=== PATIENT | male | born 1960 | race Caucasian/White ===

== ENCOUNTER 2022-04-24 15:17 | Emergency (ER) | payer BC ==
--- NOTE | 2022-04-24 16:08 | ED ---
General Adult HPI - General Chief complaint: Shortness of Breath Stated complaint: JACOB Time Seen by Provider: 04/24/22 15:33 Source: patient Mode of arrival: ambulatory - History of Present Illness Initial comments: Dictation was produced using iJento dictation software. please excuse any grammatical, word or spelling errors. Chief Complaint: 62-year-old male presents to emergency room for shortness of breath History of Present Illness: 62-year-old male with past medical history of chronic hip pain hypertension presents to the emergency department for shortness of breath and congestion. Patient states that he saw his primary care doctor 2 days ago and was prescribed medications. Patient presents to the ER because symptoms not improving. at the bedside states that patient appears jaundiced for the last month. Primary care doctor did not feel that patient appeared jaundiced. Patient denies any abdominal pain. Denies any fever, chills or night sweats. Did have some bouts of diarrhea. Patient states that he feels fatigued and weak. The ROS documented in this emergency department record has been reviewed and confirmed by me. Those systems with pertinent positive or negative responses have been documented in the HPI. All other systems are other negative and/or noncontributory. PHYSICAL EXAM: General Impression: Alert and oriented x3, not in acute distress, jaundiced, mild bilateral upper extremity asterixis HEENT: Normocephalic atraumatic, extra-ocular movements intact, pupils equal and reactive to light bilaterally, mucous membranes moist. Cardiovascular: Heart regular rate and rhythm Chest: Able to complete full sentences, no retractions, no tachypnea, decreased lung sounds to the right lung bryant Abdomen: abdomen soft, non-tender, non-distended, no organomegaly Musculoskeletal: Pulses present and equal in all extremities, no peripheral edema Motor: no focal deficits noted Neurological: CN II-XII grossly intact, no focal motor or sensory deficits noted Skin: Diffuse jaundice and scleral icterus Psych: Normal affect and mood ED course: 62-year-old male presents to the emergency department for chief complaint of shortness of breath. Signs upon arrival are within acceptable limits. Physical examination shows jaundice. Patient has painless jaundice suspicious for liver disease. Nursing notes and chart review was performed EKG interpreted by me: Ventricular rate 91, sinus rhythm,. 159, QRS 106, QTC 433. No LA prolongation, no QTC prolongation, no ST or T-wave changes noted. Overall, this EKG is unremarkable Laboratory evaluation obtained. Leukocytosis 13.1 with neutrophils at 36.1. Benoit patient's suffering from an infection. He is covered with antibiotics and blood cultures sent for culture and sensitivities. Coag panel shows INR 1.2 suggesting some sort of liver dysfunction. Metabolic panel shows some 117. Potassium 3.1. Non-gap acidosis. Slight elevation in renal markers with a G4 of 54. Total bilirubin 7.6 with a conjugated level IV.8. Liver enzymes are w ithin acceptable limits. 4 panel viral PCR is negative. Computed tomography scan of chest and pelvis was obtained showing large right-sided pleural effusion suspicious for chronic empyema versus mesothelioma. There is no obvious biliary dilatation or liver lesion or gallbladder disease. Case was discussed in detail Dr. Sneed the hospitalist who felt that patient would be better served at [facility] with GI specialist. Patient observed in emergency department for 2 hours and 40 minutes. Reevaluated at 6:06 PM found to be in stable medical condition. Patient transferred to [facility]. Case discussed with Dr. Desai was went except patient's care for ER to ER transfer. Was pt. sent in by a medical professional or institution (, PA, MANAGER PRODUCTION, urgent care, hospital, or care home...) When possible be specific @ -No Did you speak to anyone other than the patient for history (EMS, parent, family, police, friend...)? What history was obtained from this source @ - at the bedside Did you review nursing and triage notes (agree or disagree)? Why? @ -I reviewed and agree with nursing and triage notes Were old charts reviewed (outside hosp., previous admission, EMS record, old EKG, old radiological studies, urgent care reports/EKG's, care home records)? Report findings @ -No old charts were reviewed Differential Diagnosis (chest pain, altered mental status, abdominal pain women, abdominal pain men, vaginal bleeding, weakness, fever, dyspnea, syncope, headache, dizziness, GI bleed, back pain, seizure, CVA, palpatations, mental health)? @ -Differential Dyspnea: Coronary syndrome, arrhythmia, tamponade, asthma, COPD, pulmonary embolism, pneumonia, pneumothorax, pulmonary effusion, anaphylaxis, diabetic ketoacidosis, flailed chest, pulmonary contusion, diaphragmatic rupture, anemia, neuromuscular, this is not meant to be an all-inclusive list. EKG interpreted by me (3pts min.). @ -As above X-rays interpreted by me (1pt min.). @ -See above CT interpreted by me (1pt min.). @ -See above U/S interpreted by me (1pt. min.). @ -None done What testing was considered but not performed or refused? (CT, X-rays, U/S, labs)? Why? @ -None What meds were considered but not given or refused? Why? @ -none Did you discuss the management of the patient with other professionals (professionals i.e. DrEric, PA, MANAGER PRODUCTION, lab, RT, psych nurse, secondary social studies teacher, early childhood, teacher, inshore undersea warfare officer, case management assistant)? Give summary @ -See above Was smoking cessation discussed for >3mins.? @ -No Was critical care preformed (if so, how long)? @ -yes, 33 minutes Were there social determinants of health that impacted care today? How? (Homeles sness, low income, unemployed, alcoholism, drug addiction, transportation, low edu. Level, literacy, decrease access to med. care, nursing home, rehab)? @ -No Was there de-escalation of care discussed even if they declined (Discuss DNR or withdrawal of care, Hospice)? DNR status @ -No What co-morbidities impacted this encounter? (DM, HTN, Smoking, COPD, CAD, Cancer, CVA, ARF, Chemo, Hep., AIDS, mental health diagnosis, sleep apnea, morbid obesity)? @ -None Was patient admitted / discharged? Hospital course, mention meds given and route, prescriptions, significant lab abnormalities, going to OR and other pertinent info. @ -See above Undiagnosed new problem with uncertain prognosis? @ -New-onset jaundice, possible lung mass Drug Therapy requiring intensive monitoring for toxicity (Heparin, Nitro, Insulin, Cardizem)? @ -No Were any procedures done? @ -No Diagnosis/symptom? @ -1. Pleural effusion, 2. New-onset jaundice Acute, or Chronic, or Acute on Chronic? @ -Acute Uncomplicated (without systemic symptoms) or Complicated (systemic symptoms)? @ -Complicated Side effects of treatment? @ -No Exacerbation, Progression, or Severe Exacerbation? @ -No Poses a threat to life or bodily function? How? (Chest pain, [place], [place], pneumonia, PE, COPD, DKA, ARF, appy, cholecystitis, CVA, Diverticulitis, Homicidal, Suicidal, threat to staff... and all critical care pts) @ - yes - Related Data Home Medications Medication Instructions Recorded Confirmed Acetaminophen Tab [Tylenol Tab] 1,000 mg PO TID PRN 04/24/22 04/24/22 Benzonatate [Tessalon Perle] 200 mg PO TID PRN 04/24/22 04/24/22 Cyclobenzaprine [Flexeril] 10 mg PO HS 04/24/22 04/24/22 Loratadine 10 mg PO DAILY 04/24/22 04/24/22 Meloxicam [Mobic] 15 mg PO DAILY 04/24/22 04/24/22 Multivit-Min/FA/Lycopen/Lutein 1 tab PO DAILY 04/24/22 04/24/22 [Centrum Silver Tablet] Ondansetron [Zofran] 4 mg PO TID PRN 04/24/22 04/24/22 Pantoprazole [Protonix] 40 mg PO DAILY 04/24/22 04/24/22 Tamsulosin [Flomax] 0.4 mg PO DAILY 04/24/22 04/24/22 guaiFENesin-Coden 100-10MG/5ML 10 ml PO TID PRN 04/24/22 04/24/22 [Robitussin AC] hydroCHLOROthiazide [Hydrodiuril] 25 mg PO DAILY 04/24/22 04/24/22 lisinopriL [Zestril] 20 mg PO DAILY 04/24/22 04/24/22 tadalafiL 5 mg PO DAILY PRN 04/24/22 04/24/22 Allergies Allergy/AdvReac Type Severity Reaction Status Date / Time No Known Allergies Allergy Verified 04/24/22 16:59 Review of Systems ROS Statement: Those systems with pertinent positive or pertinent negative responses have been documented in the HPI. ROS Other: All systems not noted in ROS Statement are negative. Past Medical History Past Medical History: Hypertension History of Any Multi-Drug Resistant Organisms: None Reported Past Surgical History: Orthopedic Surgery Past Psychological History: No Psychological Hx Reported Smoking Status: Former smoker Past Alcohol Use History: None Reported Past Drug Use History: None Reported Course Vital Signs 0104/24/22 04/24/22 15:26 15:29 18:00 Temperature 97.6 F Pulse Rate 108 H 100 Respiratory 22 20 20 Rate Blood Pressure 156/88 148/80 O2 Sat by Pulse 99 95 Oximetry Medical Decision Making - Lab Data Result diagrams: 04/24/22 16:06 04/24/22 16:06 Lab Results 04/24/22 04/24/22 04/24/22 Range/Units 16:06 16:06 16:06 WBC 38.1 H (3.8-10.6) k/uL RBC 3.78 L (4.30-5.90) m/uL Hgb 11.7 L (13.0-17.5) gm/dL Hct 34.7 L (39.0-53.0) % MCV 91.7 (80.0-100.0) fL MCH 30.9 (25.0-35.0) pg MCHC 33.7 (31.0-37.0) g/dL RDW 14.7 (11.5-15.5) % Plt Count 411 (150-450) k/uL MPV 9.4 Neutrophils % 95 % Lymphocytes % 2 % Monocytes % 2 % Eosinophils % 0 % Basophils % 0 % Neutrophils # 36.1 H (1.3-7.7) k/uL Lymphocytes # 0.7 L (1.0-4.8) k/uL Monocytes # 0.8 (0-1.0) k/uL Eosinophils # 0.1 (0-0.7) k/uL Basophils # 0.1 (0-0.2) k/uL PT 12.3 H (9.0-12.0) sec INR 1.2 H (<1.2) APTT 29.1 (22.0-30.0) sec Sodium 117 L* (137-145) mmol/L Potassium 3.1 L (3.5-5.1) mmol/L Chloride 88 L (98-107) mmol/L Carbon Dioxide 19 L (22-30) mmol/L Anion Gap 10 mmol/L BUN 43 H (9-20) mg/dL Creatinine 1.37 H (0.66-1.25) mg/dL Est GFR (CKD-EPI)AfAm 63 (>60 ml/min/1.73 sqM) Est GFR (CKD-EPI)NonAf 54 (>60 ml/min/1.73 sqM) Glucose 125 H (74-99) mg/dL POC Glucose (mg/dL) (70-110) mg/dL POC Glu Toddler Teacher ID Plasma Lactic Acid Calos (0.7-2.0) mmol/L Calcium 6.8 L (8.4-10.2) mg/dL Magnesium 2.3 (1.6-2.3) mg/dL Total Bilirubin 7.6 H (0.2-1.3) mg/dL Conjugated Bilirubin 4.8 H (0.0-0.3) mg/dL Unconjugated Bilirubin 1.2 H (0.0-1.1) mg/dL Delta Bilirubin 1.6 H (0.0-0.2) mg/dL AST 68 H (17-59) U/L ALT 41 (4-49) U/L Alkaline Phosphatase 114 (38-126) U/L Ammonia (<30) umol/L Troponin I (0.000-0.034) ng/mL NT-Pro-B Natriuret Pep pg/mL Total Protein 5.4 L (6.3-8.2) g/dL Albumin 2.4 L (3.5-5.0) g/dL Influenza Type A (PCR) (Not Detectd) Influenza Type B (PCR) (Not Detectd) RSV (PCR) (Not Detectd) SARS-CoV-2 (PCR) (Not Detectd) 04/24/22 04/24/22 04/24/22 Range/Units 16:06 16:06 16:06 WBC (3.8-10.6) k/uL RBC (4.30-5.90) m/uL Hgb (13.0-17.5) gm/dL Hct (39.0-53.0) % MCV (80.0-100.0) fL MCH (25.0-35.0) pg MCHC (31.0-37.0) g/dL RDW (11.5-15.5) % Plt Count (150-450) k/uL MPV Neutrophils % % Lymphocytes % % Monocytes % % Eosinophils % % Basophils % % Neutrophils # (1.3-7.7) k/uL Lymphocytes # (1.0-4.8) k/uL Monocytes # (0-1.0) k/uL Eosinophils # (0-0.7) k/uL Basophils # (0-0.2) k/uL PT (9.0-12.0) sec INR (<1.2) APTT (22.0-30.0) sec Sodium (137-145) mmol/L Potassium (3.5-5.1) mmol/L Chloride (98-107) mmol/L Carbon Dioxide (22-30) mmol/L Anion Gap mmol/L BUN (9-20) mg/dL Creatinine (0.66-1.25) mg/dL Est GFR (CKD-EPI)AfAm (>60 ml/min/1.73 sqM) Est GFR (CKD-EPI)NonAf (>60 ml/min/1.73 sqM) Glucose (74-99) mg/dL POC Glucose (mg/dL) (70-110) mg/dL POC Glu Toddler Teacher ID Plasma Lactic Acid Calos 1.4 (0.7-2.0) mmol/L Calcium (8.4-10.2) mg/dL Magnesium (1.6-2.3) mg/dL Total Bilirubin (0.2-1.3) mg/dL Conjugated Bilirubin (0.0-0.3) mg/dL Unconjugated Bilirubin (0.0-1.1) mg/dL Delta Bilirubin (0.0-0.2) mg/dL AST (17-59) U/L ALT (4-49) U/L Alkaline Phosphatase (38-126) U/L Ammonia <9 (<30) umol/L Troponin I <0.012 (0.000-0.034) ng/mL NT-Pro-B Natriuret Pep 1170 pg/mL Total Protein (6.3-8.2) g/dL Albumin (3.5-5.0) g/dL Influenza Type A (PCR) (Not Detectd) Influenza Type B (PCR) (Not Detectd) RSV (PCR) (Not Detectd) SARS-CoV-2 (PCR) (Not Detectd) 04/24/22 04/24/22 Range/Units 16:06 16:15 WBC (3.8-10.6) k/uL RBC (4.30-5.90) m/uL Hgb (13.0-17.5) gm/dL Hct (39.0-53.0) % MCV (80.0-100.0) fL MCH (25.0-35.0) pg MCHC (31.0-37.0) g/dL RDW (11.5-15.5) % Plt Count (150-450) k/uL MPV Neutrophils % % Lymphocytes % % Monocytes % % Eosinophils % % Basophils % % Neutrophils # (1.3-7.7) k/uL Lymphocytes # (1.0-4.8) k/uL Monocytes # (0-1.0) k/uL Eosinophils # (0-0.7) k/uL Basophils # (0-0.2) k/uL PT (9.0-12.0) sec INR (<1.2) APTT (22.0-30.0) sec Sodium (137-145) mmol/L Potassium (3.5-5.1) mmol/L Chloride (98-107) mmol/L Carbon Dioxide (22-30) mmol/L Anion Gap mmol/L BUN (9-20) mg/dL Creatinine (0.66-1.25) mg/dL Est GFR (CKD-EPI)AfAm (>60 ml/min/1.73 sqM) Est GFR (CKD-EPI)NonAf (>60 ml/min/1.73 sqM) Glucose (74-99) mg/dL POC Glucose (mg/dL) 148 H (70-110) mg/dL POC Glu Toddler Teacher ID Annita Malhotra Plasma Lactic Acid Calos (0.7-2.0) mmol/L Calcium (8.4-10.2) mg/dL Magnesium (1.6-2.3) mg/dL Total Bilirubin (0.2-1.3) mg/dL Conjugated Bilirubin (0.0-0.3) mg/dL Unconjugated Bilirubin (0.0-1.1) mg/dL Delta Bilirubin (0.0-0.2) mg/dL AST (17-59) U/L ALT (4-49) U/L Alkaline Phosphatase (38-126) U/L Ammonia (<30) umol/L Troponin I (0.000-0.034) ng/mL NT-Pro-B Natriuret Pep pg/mL Total Protein (6.3-8.2) g/dL Albumin (3.5-5.0) g/dL Influenza Type A (PCR) Not Detected (Not Detectd) Influenza Type B (PCR) Not Detected (Not Detectd) RSV (PCR) Not Detected (Not Detectd) SARS-CoV-2 (PCR) Not Detected (Not Detectd) Disposition Clinical Impression: Jaundice, Pleural effusion, Hyponatremia Disposition: OTHER INSTITUTION NOT DEFINED Condition: Serious Referrals: Horacio Arrieta [Primary Care Provider] - 1-2 days Time of Disposition: 18:10 - Out of Hospital Transfer - Req. Specs Out of Hospital Transfer - Requested Specifics: Other Emergency Center ([facility])
[2022-04-24 16:18] LABS: Glucose,Whole Blood 148 mg/dL (70-110)
--- NOTE | 2022-04-24 16:30 | XR ---
EXAMINATION TYPE: XR chest 2V DATE OF EXAM: 04/24/2022 COMPARISON: NONE HISTORY: Short of breath TECHNIQUE: 2 views FINDINGS: There is a moderate-sized right pleural effusion. Pleural fluid is along the right lateral chest wall and could be loculated. The left lung is clear. Heart size is normal. IMPRESSION: Large right pleural effusion. No heart failure.
[2022-04-24 16:38] LABS: Basophils # (A) 0.1 k/uL (0-0.2); Basophils % (A) 0 %; Eosinophils # (A) 0.1 k/uL (0-0.7); Eosinophils % (A) 0 %; HCT 34.7 % (39.0-53.0); HGB 11.7 gm/dL (13.0-17.5); Lymphocytes # (A) 0.7 k/uL (1.0-4.8); Lymphocytes % (A) 2 %; MCH 30.9 pg (25.0-35.0); MCHC 33.7 g/dL (31.0-37.0); MCV 91.7 fL (80.0-100.0); Mean Platelet Volume 9.4; Monocytes # (A) 0.8 k/uL (0-1.0); Monocytes % (A) 2 %; Neutrophils # (A) 36.1 k/uL (1.3-7.7); Neutrophils % (A) 95 %; Platelet Count 411 k/uL (150-450); RBC 3.78 m/uL (4.30-5.90); RDW 14.7 % (11.5-15.5); WBC 38.1 k/uL (3.8-10.6)
[2022-04-24 16:40] LABS: INR 1.2 (<1.2); Partial Thromboplastin Time 29.1 sec (22.0-30.0); Prothrombin Time 12.3 sec (9.0-12.0)
[2022-04-24 16:41] LABS: Lactic Acid, Venous 1.4 mmol/L (0.7-2.0)
[2022-04-24 16:43] LABS: Albumin 2.4 g/dL (3.5-5.0); Bilirubin, Conjugated 4.8 mg/dL (0.0-0.3); Bilirubin, Delta 1.6 mg/dL (0.0-0.2); Bilirubin,Unconjugated 1.2 mg/dL (0.0-1.1); Calcium 6.8 mg/dL (8.4-10.2); Magnesium 2.3 mg/dL (1.6-2.3); Potassium 3.1 mmol/L (3.5-5.1); Total Bilirubin 7.6 mg/dL (0.2-1.3); Total Protein 5.4 g/dL (6.3-8.2)
[2022-04-24] MEDS ORDERED: PIPERACILLIN-TAZOBACTAM 3.375 GM in SODIUM CHLORIDE 0.9% 100 ML IVPB STA (16:44)
[2022-04-24 16:53] VITALS: RESP 20
--- NOTE | 2022-04-24 17:21 | CT ---
EXAMINATION TYPE: CT ChestAbdPelvis w con DATE OF EXAM: 04/24/2022 COMPARISON: None HISTORY: cough, SOB, jaundice CT DLP: 1156.2 mGycm Automated exposure control for dose reduction was used. CONTRAST: Performed without and with IV Contrast, patient injected with 80cc mL of Isovue 300. Images obtained from the thoracic inlet to the floor the pelvis with the IV contrast. There is a large right pleural effusion with loculation and fluid extending along the right lateral c hest wall. There is significant atelectasis and consolidation right lower lobe. There are a few parat urmila lymph nodes up to 1 cm. The left lung is fairly clear. No sign of pleural fluid on the left s tyler. Liver spleen stomach pancreas and gallbladder appear intact. The bile duct are not dilated. There is no adrenal mass. Kidneys show satisfactory contrast opacification. No hydronephrosis. Ureter s are not dilated. Appendix is posterior and appears normal. Bladder distends smoothly. No retroperit barbosa adenopathy. There are multiple sigmoid diverticula. No diverticulitis. No free fluid in the pel vis. There is right hip prosthesis. There is no mesenteric edema. No ascites or free air. No sign of a bowel obstruction. The thoracic and lumbar spine are intact. Sternum is intact. No compression fracture. The bony pelvis is intact. There is metal artifact from the right hip prosthesis. IMPRESSION: There is large right loculated pleural effusion with right pulmonary consolidation and atelectasis. I would consider possibilities of chronic empyema and mesothelioma. Follow-up is recommended. No acute abnormality within the abdomen and pelvis. Sigmoid diverticulosis.
[2022-04-24] MEDS ORDERED: SODIUM CHLORIDE 0.9% 1,000 ML IV STA (17:22)
[2022-04-24] MEDS ORDERED: SODIUM CHLORIDE 0.9% 500 ML 500 ML IV STA (17:22)
[2022-04-24 18:54] VITALS: BP 132/78; PULSE 98; TEMP 98.9
== END 2022-04-24 18:52 | disposition other institution (70) ==
LOC: EC 15:17
DX: J90 Pleural effusion, not elsewhere classified (principal); E87.1 Hypo-osmolality and hyponatremia; R17 Unspecified jaundice; I10 Essential (primary) hypertension; Z20.822 Contact with and (suspected) exposure to COVID-19; Z79.899 Other long term (current) drug therapy; Z87.891 Personal history of nicotine dependence
CPT/HCPCS: 36415; 93005; 83880; 80053; 82140; 82248; 83605; 83735; 84484; 85025; 85610; 85730; 87040; 87077; 87186; 87636; 71046; 71260; 74177; 99291; 96365; J2543; Q9967